=== PATIENT | male | born 1985 | race African-American/Black ===

== ENCOUNTER 2019-08-18 09:47 | Emergency (ER) | payer OTHER ==
[2019-08-18] MEDS ORDERED: IBUPROFEN 600 MG TABLET (FP) PO ONE ×2 (10:01)
[2019-08-18] MEDS ORDERED: ONDANSETRON *ODT* 4 MG TABLET ONE (10:01)
[2019-08-18] MEDS ORDERED: ONDANSETRON *ODT* 4 MG TABLET SL ONE (10:01)
--- NOTE | 2019-08-18 10:11 | PDOC ---
History of Present Illness - General Chief Complaint: Cold Symptoms Stated Complaint: cough Time Seen by Provider: 08/18/19 09:48 - History of Present Illness Initial Comments: 08/18/19 10:09 34yo male c/o subjective fevers, body aches, sore throat, and L sided cp that is worse when he takes a deep breath. Pt states he has felt sick since sunday. Pt states decreased po intake over the weekend because he felt nauseated, no vomiting or diarrhea. States his throat hurts- but seems to have improved this AM. Pt states he was coughing initially and now with pleuritic L sided cp. Pt denies sob. Pt denies cough today. Pt states his girlfriend was also sick, but she has gotten better. Pt states he did not take the flu shot this year. 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 Denies recent travel, leg swelling, calf cramping. States he took tylenol and motrin over the weekend, but did not take any this AM. Pt denies pmhx. Denies pshx. Pt denies allergies. Pt denies rash. Pt currently c/o throat pain and L sided cp. Past History - Past Medical History Allergies/Adverse Reactions: Allergies Allergy/AdvReac Type Severity Reaction Status Date / Time No Known Allergies Allergy Verified 08/18/19 10:05 Home Medications: Ambulatory Orders No Home Medications 0 dose .ROUTE UTDICT 08/01/13 Albuterol Sulfate Inhaler - [Ventolin HFA Inhaler -] 1 - 2 inh PO QID PRN #1 inhaler 08/18/19 Amoxicillin/Potassium Clav [Augmentin 875-125 Tablet] 1 each PO BID #20 tablet 08/18/19 Azithromycin [Zithromax 250mg Tablets -] 250 mg PO UTDICT #6 tab 08/18/19 - Psycho Social/Smoking Cessation Hx Smoking History: Never smoked Review of Systems - Review of Systems Able to Perform ROS?: Yes Is the patient limited [place] proficient: No Constitutional: Yes: Fever (subjective). No: Chills HEENTM: Yes: Nose Congestion, Throat Pain Respiratory: Yes: Cough. No: Shortness of Breath, SOB with Exertion Cardiac (ROS): Yes: Chest Pain. No: Irregular Heart Rate ABD/GI: Yes: Nausea. No: Diarrhea, Vomiting, Abdominal cramping : No: Burning, Dysuria Musculoskeletal: Yes: Other (body aches) Integumentary: No: Rash Neurological: No: Headache, Numbness, Paresthesia, Tingling, Weakness, Ataxia All Other Systems: Reviewed and Negative *Physical Exam - Physical Exam General Appearance: Yes: Nourished, Appropriately Dressed. No: Apparent Distress HEENT: positive: EOMI, JAIMIE, Normal Voice, TMs Normal, Pharyngeal Erythema, Nasal Congestion. negative: Tonsillar Exudate, TM Erythema Neck: positive: Supple, Other (no stridor). negative: Lymphadenopathy (R), Lymphadenopathy (L) Respiratory/Chest: positive: Lungs Clear, Normal Breath Sounds. negative: Chest Tender, Respiratory Distress Cardiovascular: positive: Regular Rhythm, Regular Rate, S1, S2. negative: Edema Gastrointestinal/Abdominal: positive: Soft. negative: Guarding, Rebound, Tenderness Musculoskeletal: positive: Normal Inspection Extremity: positive: Normal Capillary Refill, Normal Inspection, Normal Range of Motion. negative: Swelling, Calf Tenderness Integumentary: positive: Normal Color, Dry, Warm Neurologic: positive: chainstitch hemmer II-XII NML intact, Fully Oriented, Alert, Normal Mood/ Affect, Normal Response Heart Score/ECG Review - ECG Intrepretation Comment:: 08/18/19 10:38 sinus at 96, nl axis, nl interval, t wave inversions III which are nonspecific, no acute st changes ED Treatment Course - LABORATORY CBC & Chemistry Diagram: 08/18/19 11:50 08/18/19 11:50 - RADIOLOGY Radiology Studies Ordered: Category Date Time Status CHEST PA & LAT [RAD] Stat Radiology 08/18/19 10:00 Ordered Medical Decision Making - Medical Decision Making 08/18/19 10:16 a/p: 34yo male with body aches, subjective fevers, sore throat -will send flu and strep -pleuritic cp- lungs cta, no PE risk factors -will send for xray -will give motrin and zofran -will monitor and reassess 08/18/19 10:17 pt refused zofran 08/18/19 10:31 pt with pneumonia on xray will start abx discussed xray findings pt states his phlegm was only ever clear, no brown/yellow/green pt is nontoxic in appearance 08/18/19 11:06 strep + will rx augmentin and azithro for strep and pna pt updated on the plan 08/18/19 11:32 pt states not feeling better still with pain, cough, congestion will send labs, ivf hydration will monitor and reassess 08/18/19 11:52 flu neg 08/18/19 12:45 discussed labs pt states he feels better after albuterol- no longer with R sided pain, now able to take a full breath discussed staying in the hospital vs taking oral abx at home pt states he wants to go home and take oral abx mother at the bedside for shared decision making Discharge - Discharge Information Problems reviewed: Yes Clinical Impression/Diagnosis: Pneumonia Condition: Stable Disposition: HOME - Admission No - Additional Discharge Information Prescriptions: Albuterol Sulfate Inhaler - [Ventolin HFA Inhaler -] 1 - 2 inh PO QID PRN #1 inhaler PRN Reason: Shortness Of Breath Amoxicillin/Potassium Clav [Augmentin 875-125 Tablet] 1 each PO BID #20 tablet Azithromycin [Zithromax 250mg Tablets -] 250 mg PO UTDICT #6 tab - Follow up/Referral Referrals: David Henderson MD [Staff Physician] - Jayden Gunn MD [Staff Physician] - - Patient Discharge Instructions Patient Printed Discharge Instructions: DI for Pneumonia -- Adult, DI for Strep Throat Additional Instructions: Please drink plenty of fluids. Please take all antibiotics as prescribed. Please return to the ED with any further concerns or complaints. Please stop smoking. Please make an appointment to see the primary care provider and if your symptoms continue please also see the electrical engineering professor. Please take tylenol or motrin as needed for pain. - Post Discharge Activity Work/Back to School Note: Back to Work
[2019-08-18] MEDS ORDERED: AZITHROMYCIN 250 MG TABLET PO ONE (10:30)
[2019-08-18 10:32] VITALS: BMI 23.7
[2019-08-18] MEDS ORDERED: levoFLOXacin 750 MG TABLET PO ONE (10:34)
[2019-08-18] MEDS ORDERED: AMOX TR/POT CLAV 875MG/125MG TABLETS (FP) PO ONE (11:02)
[2019-08-18] MEDS ORDERED: ACETAMINOPHEN 500 MG TABLET (FP) PO ONE (11:27)
[2019-08-18] MEDS ORDERED: AMOX TR/POT CLAV 875MG/125MG TABLETS (FP) ONE (11:28)
[2019-08-18] MEDS ORDERED: SODIUM CHLORIDE 0.9% 1000 ML INFUS.BAG IV ONE (11:31)
[2019-08-18] MEDS ORDERED: ACETAMINOPHEN 500 MG TABLET (FP) ONE (11:31)
[2019-08-18] MEDS ORDERED: ALBUTEROL SO4 2.5/IPRATROPIUM 0.5 INH SOL 3 ML VIAL.NEB. NEB ONE ×2 (11:31→12:09)
[2019-08-18 12:10] LABS: BASO % 1.7 % (0-2.0); EOS % 0.1 % (0-4.5); HEMOGLOBIN 14.1 GM/dl (11.7-16.9); LYMPH % 15.1 % (8-40); MCH 30.5 pg (25.7-33.7); MCHC 33.7 g/dl (32.0-35.9); MEAN CELL VOLUME 90.6 fl (80-96); MEAN PLT VOLUME 10.4 fl (7.5-11.1); MONO % 10.7 % (3.8-10.2); NEUT % 72.4 % (42.8-82.8); PLATELET COUNT 193 K/MM3 (134-434); RBC 4.63 M/mm3 (4.00-5.60); RDW 12.3 % (11.9-15.9); WHITE BLOOD COUNT 14.2 K/mm3 (4.0-10.8)
[2019-08-18 12:18] LABS: ALBUMIN 3.5 g/dl (3.4-5.0); BILIRUBIN,TOTAL 0.6 mg/dl (0.2-1); CALCIUM 8.9 mg/dl (8.5-10); CREATININE 0.8 mg/dl (0.55-1.3); POTASSIUM 3.5 mmol/L (3.5-5.1); TOT PROT 7.8 g/dl (6.4-8.2)
[2019-08-18 13:01] VITALS: BP 134/88; PULSE 86; TEMP 98.3
--- NOTE | 2019-08-19 10:14 | EKG ---
Test Reason : Blood Pressure : / mmHG Vent. Rate : 096 BPM Atrial Rate : 096 BPM P-R Int : 158 ms QRS Dur : 098 ms QT Int : 316 ms P-R-T Axes : 053 049 029 degrees QTc Int : 399 ms NORMAL SINUS RHYTHM NONSPECIFIC T WAVE ABNORMALITY ABNORMAL ECG NO PREVIOUS ECGS AVAILABLE Confirmed by MD Kirill, Booker ([id number]) on 08/19/2019 10:14:29 AM Referred By: Confirmed By:Booker Roy MD
== END 2019-08-18 12:54 | disposition home or self-care (01) ==
LOC: FER 09:47
PROC: 3E0F7GC Introduction of Other Therapeutic Substance into Respiratory Tract, Via Natural or Artificial Opening (ICD-10-PCS; principal; 2019-08-18)
DX: J18.9 Pneumonia, unspecified organism (principal)
CPT/HCPCS: 36415; 71046-TC-FY; 80053; 85025; 87040; 87804; 87880; 93005; 99283-25; J7030

== ENCOUNTER 2019-09-05 09:31 | Emergency (ER) | payer OTHER ==
--- NOTE | 2019-09-05 09:34 | PDOC ---
History of Present Illness - General Chief Complaint: Sore Throat Stated Complaint: SORE THROAT - History of Present Illness Initial Comments: 09/05/19 10:08 34y/o M recent hx of of pneumonia, strep+ on throat swab approximately 3 weeks ago, presents to the ED with 4 days of a sore throat and nasal congestion. He completed his antibiotic regimen (azithromycin and augmentin) and was feeling better prior to this episode. He has had some difficulty breathing at night due to his congestion. He endorses post-nasal drip, night sweats, sick contacts at work (with sinus infection). He denies any fever, chest pain, chills, productive cough, abdominal pain, hx of clots, pleuritic chest pain. Past History - Past Medical History Allergies/Adverse Reactions: Allergies Allergy/AdvReac Type Severity Reaction Status Date / Time No Known Allergies Allergy Verified 08/18/19 10:05 Home Medications: Ambulatory Orders Guaifenesin/Pseudoephedrne HCl [Mucinex D ER 600-60 mg Tablet] 2 each PO Q12H PRN #10 tab.er.12h 09/05/19 Penicillin V Potassium [Pen Vee K -] 500 mg PO BID 10 Days #20 tablet 09/05/19 COPD: No - Psycho Social/Smoking Cessation Hx Smoking History: Never smoked Have you smoked in the past 12 months: No Hx Alcohol Use: No Drug/Substance Use Hx: No Review of Systems - Review of Systems Constitutional: Yes: Night Sweats. No: Chills, Fever HEENTM: Yes: Nose Congestion, Throat Pain. No: Eye Pain, Blurred Vision Respiratory: No: Wheezing, Productive cough Cardiac (ROS): No: Chest Pain, Chest Tightness ABD/GI: No: Nausea, Vomiting : No: Burning, Dysuria Musculoskeletal: No: Back Pain, Gout Integumentary: No: Bruising, Change in Color Neurological: No: Headache, Numbness Hematologic/Lymphatic: No: Blood Clots *Physical Exam - Physical Exam 09/05/19 11:59 GENERAL: Awake, alert, and fully oriented, in no acute distress HEAD: No signs of trauma, normocephalic, atraumatic EYES: PERRLA, EOMI, sclera anicteric, conjunctiva clear ENT: Auricles normal inspection, hearing grossly normal, nares patent, oropharynx clear without exudates. Moist mucosa NECK: Normal ROM, supple, tender lymph nodes bilaterally (submental) LUNGS: No distress, speaks full sentences, decreased breath sounds HEART: Regular rate and rhythm, normal S1 and S2, no murmurs, rubs or gallops, peripheral pulses normal and equal bilaterally. ABDOMEN: Soft, nontender, normoactive bowel sounds. No guarding, no rebound. No masses EXTREMITIES : Normal inspection, Normal range of motion, no edema. No clubbing or cyanosis NEUROLOGICAL: Cranial nerves II through XII grossly intact. Normal speech, normal gait, no focal sensorimotor deficits SKIN: Warm, Dry, normal turgor, no rashes or lesions noted Medical Decision Making - Medical Decision Making 09/05/19 12:01 34y/o M recent hx of of pneumonia, strep+ on throat swab approximately 3 weeks ago, presents to the ED with 4 days of a sore throat pneumonia vs strep pharyngitis vs viral URI pt tachycardic on presentation (125) strep swab CXR PA & Lateral oral hydration Strep + CXR shows resolving pneumonia PT discharged with prescription for penicillin and mucinex ER tachycardia resolved to 86 Discharge - Discharge Information Problems reviewed: Yes Clinical Impression/Diagnosis: Strep pharyngitis Condition: Stable Disposition: HOME - Admission No - Additional Discharge Information Prescriptions: Guaifenesin/Pseudoephedrne HCl [Mucinex D ER 600-60 mg Tablet] 2 each PO Q12H PRN #10 tab.er.12h PRN Reason: CONGESTION Penicillin V Potassium [Pen Vee K -] 500 mg PO BID 10 Days #20 tablet - Follow up/Referral - Patient Discharge Instructions Patient Printed Discharge Instructions: Strep Throat Additional Instructions: You were seen in the ER today for strep throat infection you have been prescribed antiobiotics. take as indicated and make sure you complete treatment return to the ER if you develop -worsening symptoms -fevers, chills, - Post Discharge Activity Work/Back to School Note: Back to Work
--- NOTE | 2019-09-05 09:42 | PDOC ---
Attending Attestation - Resident Resident Name: Rolf Mendoza - ED Attending Attestation I have performed the following: I have examined & evaluated the patient, The case was reviewed & discussed with the resident, I agree w/resident's findings & plan, Exceptions are as noted - HPI HPI: 09/05/19 10:13 34-year-old male, works in a car dealership, recovering from acute left upper lobe pneumonia last July. Symptoms had resolved, however, for the last few days he has developed worsening sore throat, congestion. No fever/chills, no kenneth shortness of breath, though head and nasal congestion during the night have made him wake up feeling that he could not breathe. No concurrent illnesses. 09/05/19 10:16 In July he had positive strep, negative influenza, negative HIV. 09/05/19 11:03 - Physicial Exam PE: 09/05/19 11:05 Alert, oriented, no acute distress, cooperative Afebrile, vital signs normal except for mild tachycardia 120 bpm, regular HEENT: Significant for moderately injected pharynx, enlarged tonsils bilaterally but not obstructive, no exudates, no kenneth masses, no stridor or drooling. Neck supple without bruit. There are tender anterior cervical nodes bilaterally , 1 to 2 cm. Lungs are clear. Full breath sounds bilaterally. No wheezes rales or rhonchi. CV regular without murmur rub or gallop 120 and regular pulses full and symmetric no JVD or edema Abdomen soft nontender without mass organomegaly. Skin clear, no rash, adequate turgor and wet mucous membranes Extremities no CCE - Medical Decision Making 09/05/19 11:07 Assessment: Resolution of prior pneumonia. Recent pharyngitis. With tachycardia, rule out strep Plan: Strep swab, oral hydration, analgesics, further evaluation and treatment depending on results Swab is positive for strep. Tachycardia less severe with recumbency, relaxation. Penicillin and Mucinex prescribed. Rest and fluids. Follow-up if no improvement. Fully ambulatory in no distress at discharge.
[2019-09-05 09:43] VITALS: TEMP 98.5; BMI 23.7
[2019-09-05 11:17] VITALS: BP 127/97; PULSE 86
== END 2019-09-05 11:30 | disposition home or self-care (01) ==
LOC: FER 09:31
DX: J40 Bronchitis, not specified as acute or chronic (principal)
CPT/HCPCS: 71046-TC-FY; 87880; 99282-25

== ENCOUNTER 2020-10-11 10:13 | Emergency (ER) | payer OTHER ==
[2020-10-11 10:27] VITALS: BP 138/90; PULSE 87; TEMP 98.7; BMI 25.7
[2020-10-11] MEDS ORDERED: ACETAMINOPHEN 500 MG TABLET (FP) PO ONE (10:42)
[2020-10-11] MEDS ORDERED: LIDOCAINE 5% TOPICAL PATCH TP ONE (10:42)
[2020-10-11] MEDS ORDERED: ACETAMINOPHEN 500 MG TABLET (FP) ONE (10:56)
[2020-10-11] MEDS ORDERED: LIDOCAINE 5% TOPICAL PATCH ONE (10:57)
[2020-10-11] MEDS ORDERED: IBUPROFEN 600 MG TABLET (FP) PO ONE ×2 (12:26→12:43)
[2020-10-11] MEDS ORDERED: LIDOCAINE PATCH REMOVAL MC SCH (22:00)
== END 2020-10-11 12:54 | disposition home or self-care (01) ==
LOC: FER 10:13
DX: M54.6 Pain in thoracic spine (principal)
CPT/HCPCS: 71045-TC-FY; 72128-TC; 99285-25

== ENCOUNTER 2021-12-23 11:05 | Emergency (ER) | payer SELFPAY ==
[2021-12-23 11:13] VITALS: BP 114/76; PULSE 66; TEMP 98.1; BMI 23.1
[2021-12-23] MEDS ORDERED: SODIUM CHLORIDE 1,000 ML IV STA (11:44)
[2021-12-23] MEDS ORDERED: FAMOTIDINE 20 MG/50 ML IVPB 20 MG/50 ML MG IVPB ONE ×2 (11:44→12:08)
[2021-12-23] MEDS ORDERED: ONDANSETRON 4 MG/2 ML VIAL IVPUSH ONE (11:44)
[2021-12-23] MEDS ORDERED: ONDANSETRON 4 MG/2 ML VIAL ONE (12:08)
[2021-12-23 12:22] LABS: HEMATOCRIT 47.2 % (35.4-49); HEMOGLOBIN 16.2 G/dL (11.7-16.9); MCH 31.4 pg (25.7-33.7); MCHC 34.2 g/dl (32.0-35.9); MEAN CELL VOLUME 91.6 fl (80-96); MEAN PLT VOLUME 10.2 fl (7.5-11.1); PLATELET COUNT 169.9 10^3/uL (134-434); RBC 5.15 10^6/uL (4.00-5.60); RDW 15.2 % (11.9-15.9); WHITE BLOOD COUNT 3.2 10^3/uL (4.0-10.8)
[2021-12-23 12:30] LABS: ALBUMIN 4.1 g/dl (3.4-5.0); BILIRUBIN,TOTAL 0.6 mg/dl (0.2-1); CALCIUM 9.1 mg/dl (8.5-10); MAGNESIUM 2.2 mg/dL (1.8-2.4); PHOSPHOROUS 3.5 mg/dl (2.5-4.9); TOT PROT 7.7 g/dl (6.4-8.2)
[2021-12-23] MEDS ORDERED: METOCLOPRAMIDE HCL INJECTION 10 MG/2 ML VIAL IVPB ONE (13:32)
[2021-12-23] MEDS ORDERED: KETOROLAC TROMETHAMINE 30 MG/1 ML VIAL IVPUSH ONE (13:32)
[2021-12-23] MEDS ORDERED: METOCLOPRAMIDE HCL INJECTION 10 MG/2 ML VIAL ONE (13:43)
[2021-12-23] MEDS ORDERED: KETOROLAC TROMETHAMINE 30 MG/1 ML VIAL ONE (13:43)
== END 2021-12-23 14:55 | disposition home or self-care (01) ==
LOC: FER 11:05
PROC: 3E033GC Introduction of Other Therapeutic Substance into Peripheral Vein, Percutaneous Approach (ICD-10-PCS; principal; 2021-12-23)
DX: R51.9 Headache, unspecified (principal); R11.2 Nausea with vomiting, unspecified; R19.7 Diarrhea, unspecified
CPT/HCPCS: 36415; 80053; 83735; 84100; 85027; 87804; 99284-25; C9803-CS; U0003; U0005

== ENCOUNTER 2024-12-28 01:12 | Emergency (ER) | payer BC ==
[2024-12-28 01:20] VITALS: RESP 18; TEMP 98.2; BMI 23.2
[2024-12-28] MEDS ORDERED: IBUPROFEN 400 MG TABLET (FP) PO ONE (01:29)
[2024-12-28] MEDS: IBUPROFEN 400 MG TABLET (FP) PO ONE (01:30)
[2024-12-28] MEDS ORDERED: morphine SULFATE 4 MG/ML VIAL ONE ×3 (01:58→04:05)
[2024-12-28] MEDS: morphine CARPU-JECT 4 MG/1 ML DISP.SYRIN IVPUSH ONE ×3 (02:03→04:10)
[2024-12-28 02:53] VITALS: BP 150/84; PULSE 70
[2024-12-28 04:56] LABS: ABSOLUTE IMMATURE GRANULOCYTES 0.03 x10^3/uL (0.0-0.031); BASOPHILS # 0.04 x10^3/uL (0.01-0.08); EOSINOPHIL % 1.1 % (0.8-7.0); HEMATOCRIT 40.7 % (40.1-51.0); HEMOGLOBIN 13.3 g/dL (13.7-17.5); MCHC 32.7 g/dl (32.3-36.5); MEAN CELL VOLUME 88.7 fl (79.0-92.2); MEAN PLT VOLUME 13.3 fl (9.4-12.4); MONOCYTE # 0.78 x10^3/uL (0.30-0.82); MONOCYTE % 8.5 % (5.3-12.2); PLATELET COUNT 211 x10^3/uL (163-337); RDW 13.1 % (12.0-15.6)
[2024-12-28 05:12] LABS: INR 1.06 (0.83-1.09); PROTHROMBIN TIME (PATIENT) 11.7 SEC (9.7-13.0)
[2024-12-28 05:29] LABS: POTASSIUM 3.5 mmol/L (3.5-5.1)
[2024-12-28 05:31] LABS: CALCIUM 8.8 mg/dL (8.5-10.1)
[2024-12-28 05:32] LABS: ALBUMIN 3.9 g/dl (3.4-5.0)
[2024-12-28 05:36] LABS: BILIRUBIN,TOTAL 0.2 mg/dL (0.2-1)
[2024-12-28 05:37] LABS: TOT PROT 7.7 g/dl (6.4-8.2)
== END 2024-12-28 04:11 | disposition short-term general hospital (02) ==
LOC: FER 01:12
PROC: 3E033NZ Introduction of Analgesics, Hypnotics, Sedatives into Peripheral Vein, Percutaneous Approach (ICD-10-PCS; principal; 2024-12-28)
PROC: 3E033NZ Introduction of Analgesics, Hypnotics, Sedatives into Peripheral Vein, Percutaneous Approach (ICD-10-PCS; 2024-12-28)
PROC: 3E033NZ Introduction of Analgesics, Hypnotics, Sedatives into Peripheral Vein, Percutaneous Approach (ICD-10-PCS; 2024-12-28)
DX: S42.211A Unspecified displaced fracture of surgical neck of right humerus, initial encounter for closed fracture (principal); X50.1XXA Overexertion from prolonged static or awkward postures, initial encounter
CPT/HCPCS: 36415; 73060-TC-RT-FY; 73070-TC-RT-FY; 80053; 85025; 85610; 99284-25